=== PATIENT | male | born 1980 | race Two or more races ===

== ENCOUNTER 2021-09-14 11:22 | Inpatient (IN) | payer MEDICAID ==
[~2021-09-14] VITALS: Ht 177.8 cm; Wt 106.3 kg
[2021-09-14 13:09] LABS: BASOPHILS % 1.9 % (0.0-2.0); EOSINOPHILS % 6.3 % (0.0-5.0); HEMATOCRIT. 31.3 % (42.0-52.0); HEMOGLOBIN. 10.2 g/dL (14.0-18.0); LYMPHOCYTES % 16.2 % (20.0-50.0); MEAN CORPUSCULAR HEMOGLOBIN 29.7 pg (28.0-32.0); MEAN CORPUSCULAR VOLUME 90.8 fL (80.0-94.0); MEAN PLATELET VOLUME 8.4 fl (7.4-10.4); MONOCYTES % 6.8 % (2.0-8.0); NEUTROPHILS % 68.8 % (40.0-76.0); PLATELET 230 x1000/uL (130-400); RED BLOOD CELL COUNT 3.44 mill/uL (4.7-6.1); RED CELL DISTRIBUTION WIDTH 15.5 % (11.6-14.6)
[2021-09-14] MEDS ORDERED: AZITHROMYCIN 500MG/250ML 250 ML IV ONE (13:15)
[2021-09-14] MEDS ORDERED: CEFTRIAXONE 1 G PREMIX 50 ML IV ONE (13:15)
[2021-09-14 13:16] LABS: CHLORIDE 101 mEq/L (98-107)
[2021-09-14] MEDS ORDERED: ASPIRIN 81MG TABLET PO ONE (14:30)
[2021-09-14] MEDS: HYDRALAZINE 20MG/ML VIAL IV PRN (18:37)
[2021-09-15] MEDS: HYDRALAZINE 20MG/ML VIAL IV PRN (03:47)
[2021-09-15] MEDS: NIFEDIPINE XL 60MG TAB PO SCH ×3 (08:35→09:11)
[2021-09-15] MEDS ORDERED: CEFTRIAXONE 1 G PREMIX 50 ML IV SCH (11:30)
[2021-09-15] MEDS ORDERED: CLONIDINE 0.1MG TABLET PO PRN (11:30)
[2021-09-15] MEDS ORDERED: IPRATROPIUM/ALBUTEROL 0.5-3(2.5)MG/3ML NEB NEB PRN (11:30)
[2021-09-15] MEDS ORDERED: ACETAMINOPHEN 325MG TABLET PO PRN (11:30)
[2021-09-15] MEDS ORDERED: ONDANSETRON HCL 4MG/2ML INJ IV PRN (11:30)
[2021-09-15 11:39] VITALS: BP 121/73
[2021-09-15 12:00] VITALS: BP 121/75
[2021-09-15] MEDS: CEFTRIAXONE 1,000 MG in DEXTROSE 5% WATER 50 ML IV SCH (13:29)
[2021-09-15] MEDS: ENOXAPARIN 40MG/0.4ML SYR SUBCUT SCH (13:29)
[2021-09-15 16:00] VITALS: BP 118/60
[2021-09-15] MEDS: AZITHROMYCIN 500 MG in DEXT 5% WATER 250 ML IV SCH (16:29)
[2021-09-15] MEDS ORDERED: PNEUMOCOCCAL 23-VAL P-SAC VAC 0.5 ML IM ONE (17:00)
[2021-09-15 20:00] VITALS: BP 140/87
[2021-09-15 20:00] LABS: CREATINE KINASE 41 IU/L (39-308)
[2021-09-15 20:01] LABS: CREATINE KINASE MB FRACTION 1.5 ng/mL (0.5-3.6)
[2021-09-15 23:28] LABS: CREATINE KINASE 30 IU/L (39-308)
[2021-09-15 23:29] LABS: CREATINE KINASE MB FRACTION 1.3 ng/mL (0.5-3.6)
[2021-09-16] VITALS: BP 149/92
[2021-09-16 04:00] VITALS: BP 140/86
[2021-09-16 06:55] LABS: BASOPHILS % 1.9 % (0.0-2.0); EOSINOPHILS % 8.1 % (0.0-5.0); HEMATOCRIT. 30.3 % (42.0-52.0); LYMPHOCYTES % 18.7 % (20.0-50.0); MEAN CORPUSCULAR HEMOGLOBIN 30.4 pg (28.0-32.0); MEAN CORPUSCULAR VOLUME 92.6 fL (80.0-94.0); MEAN PLATELET VOLUME 8.8 fl (7.4-10.4); NEUTROPHILS % 62.3 % (40.0-76.0); PLATELET 225 x1000/uL (130-400); RED BLOOD CELL COUNT 3.28 mill/uL (4.7-6.1); RED CELL DISTRIBUTION WIDTH 15.4 % (11.6-14.6)
[2021-09-16 08:00] VITALS: BP 138/83
[2021-09-16] MEDS: ENOXAPARIN 40MG/0.4ML SYR SUBCUT SCH (11:16)
[2021-09-16 12:00] VITALS: BP 135/85
[2021-09-16] MEDS: CEFTRIAXONE 1,000 MG in DEXTROSE 5% WATER 50 ML IV SCH (12:10)
[2021-09-16] MEDS: AZITHROMYCIN 500 MG in DEXT 5% WATER 250 ML IV SCH (13:13)
[2021-09-16 16:00] VITALS: BP 151/94
[2021-09-17] VITALS: BP 123/59
[2021-09-17 04:00] VITALS: BP 179/75
[2021-09-17 07:58] VITALS: BP 146/83
[2021-09-17] MEDS: NIFEDIPINE XL 60MG TAB PO SCH (08:28)
[2021-09-17] MEDS: ENOXAPARIN 40MG/0.4ML SYR SUBCUT SCH (11:30)
[2021-09-17 12:18] VITALS: BP 147/93
[2021-09-17 12:19] VITALS: BP 147/93
== END 2021-09-17 13:10 | disposition home or self-care (01) | DRG 720 ==
LOC: ER 11:45 → EDBEDREQ 14:40 → MICUSO 15:13 → EDBEDREQ 15:16 → 7EST 09-15 10:51
PROVIDERS: ADMIT Internal Medicine; ATTEND Internal Medicine
PROC: 5A1D70Z Performance of Urinary Filtration, Intermittent, Less than 6 Hours Per Day (ICD-10-PCS; principal; 2021-09-16)
DX: A41.9 Sepsis, unspecified organism (principal); I13.2 Hypertensive heart and chronic kidney disease with heart failure and with stage 5 chronic kidney disease, or end stage renal disease; J18.9 Pneumonia, unspecified organism; N18.6 End stage renal disease; E44.0 Moderate protein-calorie malnutrition; I50.9 Heart failure, unspecified; I16.0 Hypertensive urgency; Z20.822 Contact with and (suspected) exposure to COVID-19; D72.819 Decreased white blood cell count, unspecified; M19.90 Unspecified osteoarthritis, unspecified site; D64.9 Anemia, unspecified; Z86.16 Personal history of COVID-19; Z82.49 Family history of ischemic heart disease and other diseases of the circulatory system; Z99.2 Dependence on renal dialysis; Z99.3 Dependence on wheelchair; Q05.9 Spina bifida, unspecified; Z68.33 Body mass index [BMI] 33.0-33.9, adult
CPT/HCPCS: 36415; 71045; 80048; 80053; 82550; 82553; 83605; 83880; 84145; 84484; 85025; 87426; 90732; 93005; 93306; 93970; 99291; C9803; J0360; J0456; J0696; J1650; J2405; J7060; U0003; U0005

== ENCOUNTER 2022-09-03 13:17 | Inpatient (IN) | payer MEDICAID ==
[~2022-09-03] VITALS: Ht 177.8 cm; Wt 95.3 kg
[2022-09-03] MEDS ORDERED: PHENYLEPHRINE 100 MG in DEXT 5% WATER 240 ML IV STA (14:28)
[2022-09-03 15:08] LABS: HEMATOCRIT. 34.9 % (42.0-52.0); HEMOGLOBIN. 11.7 g/dL (14.0-18.0); MEAN CORPUSCULAR HEMOGLOBIN 32.6 pg (28.0-32.0); MEAN CORPUSCULAR VOLUME 96.8 fL (80.0-94.0); MEAN PLATELET VOLUME 7.9 fl (7.4-10.4); PLATELET 218 x1000/uL (130-400); RED BLOOD CELL COUNT 3.61 mill/uL (4.7-6.1)
[2022-09-03 15:15] LABS: CHLORIDE 94 mEq/L (98-107)
[2022-09-03] MEDS ORDERED: CEFEPIME HCL 1000MG/VIAL INJ IV ONE (15:30)
[2022-09-03] MEDS ORDERED: VANCOMYCIN 1G PREMIX 200 ML IV SCH (15:30)
[2022-09-03] MEDS ORDERED: CEFEPIME 2,000 MG in DEXT 5% WATER 100 ML IV NR (16:00)
[2022-09-03] MEDS ORDERED: VANCOMYCIN 1,000 MG in DEXT 5% WATER 250 ML IV NR (16:00)
[2022-09-03] MEDS ORDERED: PHENYLEPHRINE 100 MG in DEXT 5% WATER 240 ML IV NR (16:15)
[2022-09-03 16:23] LABS: PLATELET ESTIMATE NORMAL
[2022-09-03] MEDS: PHENYLEPHRINE 100 MG in DEXT 5% WATER 240 ML IV PRN ×2 (16:36→19:00)
[2022-09-03] MEDS ORDERED: DOCUSATE SODIUM 100MG CAPSULE PO PRN (20:15)
[2022-09-03] MEDS ORDERED: HYDROCODONE/ACETAMINOPHEN 5/325MG TABLET PO PRN (20:15)
[2022-09-03] MEDS ORDERED: CLONIDINE 0.1MG TABLET PO PRN (20:15)
[2022-09-03] MEDS ORDERED: NALOXONE HCL 0.4MG/ML VIAL IV PRN (20:15)
[2022-09-03] MEDS ORDERED: IPRATROPIUM/ALBUTEROL 0.5-3(2.5)MG/3ML NEB HHN PRN (20:15)
[2022-09-03] MEDS ORDERED: ACETAMINOPHEN 325MG TABLET PO PRN ×2 (20:15)
[2022-09-03] MEDS ORDERED: ONDANSETRON HCL 4MG/2ML INJ IV PRN (20:15)
[2022-09-03] MEDS ORDERED: MAGNESIUM/ALUMINUM HYDROXIDE/SIMETHICONE 30ML UDC PO PRN (20:15)
[2022-09-03] MEDS ORDERED: GUAIFENESIN 200MG/10ML SUGAR FREE UDC PO PRN (20:15)
[2022-09-03] MEDS ORDERED: PIPERACILLIN/TAZOBACTAM 3.375GM/50ML PREMIX IV SCH (22:00)
[2022-09-03] MEDS ORDERED: VANCOMYCIN 750MG PREMIX 150 ML IV NR (22:00)
[2022-09-04] VITALS (50 sets, daily range): BP systolic 68–125; BP diastolic 34–66
[2022-09-04 00:05] LABS: HEMATOCRIT. 35.5 % (42.0-52.0); HEMOGLOBIN. 11.6 g/dL (14.0-18.0); MEAN CORPUSCULAR HEMOGLOBIN 31.8 pg (28.0-32.0); MEAN CORPUSCULAR VOLUME 97.2 fL (80.0-94.0); MEAN PLATELET VOLUME 7.6 fl (7.4-10.4); PLATELET 301 x1000/uL (130-400); RED BLOOD CELL COUNT 3.65 mill/uL (4.7-6.1); RED CELL DISTRIBUTION WIDTH 14.7 % (11.6-14.6)
[2022-09-04 00:46] LABS: PLATELET ESTIMATE NORMAL
[2022-09-04 05:32] LABS: HEMATOCRIT. 34.5 % (42.0-52.0); HEMOGLOBIN. 11.6 g/dL (14.0-18.0); MEAN CORPUSCULAR HEMOGLOBIN 32.7 pg (28.0-32.0); MEAN CORPUSCULAR VOLUME 97.8 fL (80.0-94.0); MEAN PLATELET VOLUME 7.3 fl (7.4-10.4); PLATELET 258 x1000/uL (130-400); RED BLOOD CELL COUNT 3.53 mill/uL (4.7-6.1); RED CELL DISTRIBUTION WIDTH 14.7 % (11.6-14.6)
[2022-09-04 05:40] LABS: CHLORIDE 95 mEq/L (98-107)
[2022-09-04 05:53] LABS: INR 1.1
[2022-09-04 05:58] LABS: HDL CHOLESTEROL 34 mg/dL (40-59); LDL CHOLESTEROL 39 mg/dL (5-100); PHOSPHORUS 7.4 mg/dL (2.5-4.9); T4 FREE 0.97 ng/dL (0.76-1.46); TOTAL IRON BINDING CAPACITY 186 ug/dL (250-450)
[2022-09-04 06:11] LABS: VITAMIN B12 SERUM 317 pg/mL (211-911)
[2022-09-04] MEDS ORDERED: ENOXAPARIN 30MG/0.3ML SYR SUBCUT SCH (09:00)
[2022-09-04] MEDS: PANTOPRAZOLE SODIUM 40 MG/VIAL IV SCH (09:03)
[2022-09-04] MEDS: PIPERACILLIN/TAZOBACTAM 3.375 G in DEXTROSE 5% WATER 50 ML IV SCH ×2 (09:03→23:39)
[2022-09-04] MEDS ORDERED: VANCOMYCIN 750MG PREMIX 150 ML IV NR (11:00)
[2022-09-04 12:38] LABS: PLATELET ESTIMATE NORMAL
[2022-09-04] MEDS ORDERED: CALC667T6 MT (15:16)
[2022-09-04] MEDS ORDERED: SACU1TAB7 MT (15:16)
[2022-09-04] MEDS: MIDODRINE HCL 5MG TABLET PO SCH (16:42)
[2022-09-05] VITALS (106 sets, daily range): BP systolic 53–135; BP diastolic 21–88
[2022-09-05 06:14] LABS: BASOPHILS % 1.1 % (0.0-2.0); EOSINOPHILS % 1.9 % (0.0-5.0); HEMOGLOBIN. 11.9 g/dL (14.0-18.0); LYMPHOCYTES % 8.6 % (20.0-50.0); MEAN CORPUSCULAR HEMOGLOBIN 32.8 pg (28.0-32.0); MEAN CORPUSCULAR VOLUME 96.4 fL (80.0-94.0); MEAN PLATELET VOLUME 7.7 fl (7.4-10.4); MONOCYTES % 7.8 % (2.0-8.0); NEUTROPHILS % 80.6 % (40.0-76.0); PLATELET 275 x1000/uL (130-400); RED BLOOD CELL COUNT 3.62 mill/uL (4.7-6.1); RED CELL DISTRIBUTION WIDTH 14.3 % (11.6-14.6)
[2022-09-05] MEDS: NOREPINEPHRINE 8 MG in DEXT 5% WATER 242 ML IV PRN (06:34)
[2022-09-05] MEDS ORDERED: LIDOCAINE HCL/PF 1% 10 MG/ML 5ML VIAL ONE (08:06)
[2022-09-05] MEDS ORDERED: SODIUM POLYSTYRENE SULFONATE 15 G/60 ML BOT PO SCH (08:15)
[2022-09-05] MEDS: PANTOPRAZOLE SODIUM 40 MG/VIAL IV SCH (08:51)
[2022-09-05] MEDS: MIDODRINE HCL 5MG TABLET PO SCH ×3 (08:51→16:34)
[2022-09-05] MEDS: ENOXAPARIN 40MG/0.4ML SYR SUBCUT SCH ×2 (08:51→12:52)
[2022-09-05] MEDS: PIPERACILLIN/TAZOBACTAM 3.375 G in DEXTROSE 5% WATER 50 ML IV SCH ×2 (08:52→20:32)
[2022-09-06] VITALS (88 sets, daily range): BP systolic 65–150; BP diastolic 32–84
[2022-09-06] MEDS: NOREPINEPHRINE 8 MG in DEXT 5% WATER 242 ML IV PRN (05:12)
[2022-09-06] MEDS: MIDODRINE HCL 5MG TABLET PO SCH ×3 (08:39→17:46)
[2022-09-06] MEDS: ENOXAPARIN 30MG/0.3ML SYR SUBCUT SCH ×2 (08:39→09:00)
[2022-09-06] MEDS: PIPERACILLIN/TAZOBACTAM 3.375 G in DEXTROSE 5% WATER 50 ML IV SCH ×2 (08:39→21:35)
[2022-09-06] MEDS: PANTOPRAZOLE SODIUM 40 MG/VIAL IV SCH (08:40)
[2022-09-07] VITALS (98 sets, daily range): BP systolic 53–163; BP diastolic 15–114
[2022-09-07 05:57] LABS: BASOPHILS % 1.1 % (0.0-2.0); EOSINOPHILS % 4.4 % (0.0-5.0); HEMATOCRIT. 32.9 % (42.0-52.0); HEMOGLOBIN. 11.2 g/dL (14.0-18.0); LYMPHOCYTES % 17.5 % (20.0-50.0); MEAN CORPUSCULAR HEMOGLOBIN 32.8 pg (28.0-32.0); MEAN CORPUSCULAR VOLUME 96.4 fL (80.0-94.0); MEAN PLATELET VOLUME 7.5 fl (7.4-10.4); MONOCYTES % 8.9 % (2.0-8.0); NEUTROPHILS % 68.1 % (40.0-76.0); PLATELET 285 x1000/uL (130-400); RED BLOOD CELL COUNT 3.42 mill/uL (4.7-6.1); RED CELL DISTRIBUTION WIDTH 14.2 % (11.6-14.6)
[2022-09-07] MEDS: PANTOPRAZOLE SODIUM 40 MG/VIAL IV SCH (09:00)
[2022-09-07] MEDS: ENOXAPARIN 30MG/0.3ML SYR SUBCUT SCH (09:00)
[2022-09-07] MEDS: PIPERACILLIN/TAZOBACTAM 3.375 G in DEXTROSE 5% WATER 50 ML IV SCH ×2 (09:00→21:10)
[2022-09-07] MEDS: MIDODRINE HCL 5MG TABLET PO SCH ×3 (09:01→17:43)
[2022-09-07] MEDS ORDERED: LIDOCAINE HCL 1% 10 MG/ML 10ML VIAL ONE ×2 (13:33→14:19)
[2022-09-07] MEDS ORDERED: HEPARIN 1000 UNITS/ML 10ML ONE (13:33)
[2022-09-07] MEDS ORDERED: MIDAZOLAM HCL 2 MG/2 ML VIAL ONE (13:39)
[2022-09-07] MEDS ORDERED: FENTANYL CITRATE/PF 50MCG/ML 2ML VIAL ONE (13:39)
[2022-09-07] MEDS ORDERED: IOHEXOL-300 50 ML BOTTLE IV ONE (13:41)
[2022-09-07] MEDS ORDERED: MIDAZOLAM HCL 2 MG/2 ML VIAL IV ONE (14:15)
[2022-09-07] MEDS ORDERED: FENTANYL CITRATE/PF 50MCG/ML 2ML VIAL IV ONE (14:15)
[2022-09-07] MEDS ORDERED: VANCOMYCIN 750MG PREMIX 150 ML IV NR (21:00)
[2022-09-08] VITALS (56 sets, daily range): BP systolic 30–139; BP diastolic 20–74
[2022-09-08 06:39] LABS: BASOPHILS % 1.2 % (0.0-2.0); EOSINOPHILS % 4.1 % (0.0-5.0); HEMATOCRIT. 31.2 % (42.0-52.0); HEMOGLOBIN. 10.4 g/dL (14.0-18.0); LYMPHOCYTES % 14.6 % (20.0-50.0); MEAN CORPUSCULAR HEMOGLOBIN 32.6 pg (28.0-32.0); MEAN CORPUSCULAR VOLUME 97.5 fL (80.0-94.0); MEAN PLATELET VOLUME 7.6 fl (7.4-10.4); NEUTROPHILS % 70.1 % (40.0-76.0); PLATELET 235 x1000/uL (130-400); RED CELL DISTRIBUTION WIDTH 14.3 % (11.6-14.6)
[2022-09-08] MEDS: PANTOPRAZOLE SODIUM 40 MG/VIAL IV SCH (08:00)
[2022-09-08] MEDS: PIPERACILLIN/TAZOBACTAM 3.375 G in DEXTROSE 5% WATER 50 ML IV SCH (08:00)
[2022-09-08] MEDS: MIDODRINE HCL 5MG TABLET PO SCH ×2 (08:35→14:09)
[2022-09-08] MEDS: ENOXAPARIN 30MG/0.3ML SYR SUBCUT SCH (08:37)
[2022-09-08 09:12] LABS: PHOSPHORUS 8.7 mg/dL (2.5-4.9)
[2022-09-08] MEDS ORDERED: SEVELAMER CARBONATE 800 MG TABLET PO SCH (10:45)
[2022-09-08 16:15] LABS: HEPATITIS B SURFACE ANTIGEN NEGATIVE
== END 2022-09-08 16:20 | disposition home or self-care (01) | DRG 720 ==
LOC: ER 13:17 → MICUSO 18:48 → EDBEDREQ 18:50 → EDBEDREQTM 18:50 → EDBEDREQSVC 18:50 → CVICU 09-04 14:06
PROVIDERS: ADMIT Internal Medicine; ATTEND Internal Medicine
PROC: 05HM33Z Insertion of Infusion Device into Right Internal Jugular Vein, Percutaneous Approach (ICD-10-PCS; 2022-09-03)
PROC: B543ZZA Ultrasonography of Right Jugular Veins, Guidance (ICD-10-PCS; 2022-09-03)
PROC: 5A1D70Z Performance of Urinary Filtration, Intermittent, Less than 6 Hours Per Day (ICD-10-PCS; 2022-09-04)
PROC: 0JH63XZ Insertion of Tunneled Vascular Access Device into Chest Subcutaneous Tissue and Fascia, Percutaneous Approach (ICD-10-PCS; principal; 2022-09-07)
PROC: 02H633Z Insertion of Infusion Device into Right Atrium, Percutaneous Approach (ICD-10-PCS; 2022-09-07)
PROC: B5181ZA Fluoroscopy of Superior Vena Cava using Low Osmolar Contrast, Guidance (ICD-10-PCS; 2022-09-07)
PROC: B548ZZA Ultrasonography of Superior Vena Cava, Guidance (ICD-10-PCS; 2022-09-07)
PROC: 02HV33Z Insertion of Infusion Device into Superior Vena Cava, Percutaneous Approach (ICD-10-PCS; 2022-09-07)
PROC: B548ZZA Ultrasonography of Superior Vena Cava, Guidance (ICD-10-PCS; 2022-09-07)
PROC: 5A1D70Z Performance of Urinary Filtration, Intermittent, Less than 6 Hours Per Day (ICD-10-PCS; 2022-09-08)
DX: A41.9 Sepsis, unspecified organism (principal); K63.2 Fistula of intestine; I13.2 Hypertensive heart and chronic kidney disease with heart failure and with stage 5 chronic kidney disease, or end stage renal disease; E87.20 Acidosis, unspecified; D63.8 Anemia in other chronic diseases classified elsewhere; E83.39 Other disorders of phosphorus metabolism; E83.51 Hypocalcemia; E87.1 Hypo-osmolality and hyponatremia; N18.6 End stage renal disease; I42.9 Cardiomyopathy, unspecified; E87.8 Other disorders of electrolyte and fluid balance, not elsewhere classified; D53.9 Nutritional anemia, unspecified; I50.22 Chronic systolic (congestive) heart failure; E80.6 Other disorders of bilirubin metabolism; K80.20 Calculus of gallbladder without cholecystitis without obstruction; Q05.9 Spina bifida, unspecified; Z79.899 Other long term (current) drug therapy; Z93.3 Colostomy status; Z90.5 Acquired absence of kidney; Z99.2 Dependence on renal dialysis; Z86.79 Personal history of other diseases of the circulatory system
CPT/HCPCS: 36415; 36558; 36573; 36589; 71045; 74176; 76937; 77001; 80048; 80053; 80061; 80202; 82550; 82607; 82728; 82746; 83540; 83550; 83605; 83735; 83880; 84100; 84145; 84439; 84443; 84484; 85025; 86705; 86709; 86803; 87070; 87340; 90935; 93306; 99152; 99153; 99291; C1725; C1769; C9113; J0692; J1644; J1650; J2250; J2370; J2543; J3010; J3370; J3490; J7060; Q9967; G0500

== ENCOUNTER 2023-01-30 15:27 | Emergency (ER) | payer MEDICAID ==
[~2023-01-30] VITALS: Ht 177.8 cm; Wt 107.0 kg
[~2023-01-30 15:27] MED LIST: CALC667T6 MT; SACU1TAB7 MT
[2023-01-30 16:05] LABS: BASOPHILS % 0.9 % (0.0-2.0); HEMATOCRIT. 27.5 % (42.0-52.0); HEMOGLOBIN. 8.9 g/dL (14.0-18.0); LYMPHOCYTES % 11.7 % (20.0-50.0); MEAN CORPUSCULAR VOLUME 98.7 fL (80.0-94.0); MONOCYTES % 4.4 % (2.0-8.0); PLATELET 231 x1000/uL (130-400); RED BLOOD CELL COUNT 2.78 mill/uL (4.7-6.1); RED CELL DISTRIBUTION WIDTH 15.5 % (11.6-14.6)
[2023-01-30 16:11] LABS: PROTHROMBIN TIME 11.1 sec (9.6-11.0)
[2023-01-30 16:15] LABS: CHLORIDE 99 mEq/L (98-107)
[2023-01-30 18:15] VITALS: BP 108/62
== END 2023-01-30 19:20 | disposition left against medical advice (07) ==
LOC: ER 15:27
DX: T82.514A Breakdown (mechanical) of infusion catheter, initial encounter (principal); X58.XXXA Exposure to other specified factors, initial encounter; E87.5 Hyperkalemia; N18.6 End stage renal disease; I10 Essential (primary) hypertension; Z20.822 Contact with and (suspected) exposure to COVID-19
CPT/HCPCS: 36415; 71045; 80053; 84484; 85025; 85610; 87426; 93005; 99285; C9803; Z7610

== ENCOUNTER 2025-04-21 09:58 | Inpatient (IN) | payer MEDICAID, OTHER ==
[~2025-04-21] VITALS: Ht 177.8 cm; Wt 122.0 kg
[2025-04-21] VITALS (40 sets, daily range): BP systolic 84–108; BP diastolic 47–86; PULSE 62–94; RESP 11–25; TEMP 36.50292–37.1; O2SAT 88–100
[2025-04-21 10:34] LABS: BASOPHILS % 0.8 % (0.0-2.0); EOSINOPHILS % 2.2 % (0.0-5.0); HEMATOCRIT. 27.6 % (42.0-52.0); HEMOGLOBIN. 9.1 g/dL (14.0-18.0); LYMPHOCYTES % 12.6 % (20.0-50.0); MEAN PLATELET VOLUME 8.5 fl (7.4-10.4); MONOCYTES % 5.0 % (2.0-8.0); NEUTROPHILS % 79.4 % (40.0-76.0); PLATELET 201 x1000/uL (130-400); RED BLOOD CELL COUNT 2.81 mill/uL (4.7-6.1); RED CELL DISTRIBUTION WIDTH 14.1 % (11.6-14.6)
[2025-04-21] MEDS: SODIUM CHLORIDE 0.9% 500 ML IV ONE ×2 (10:49→12:15)
[2025-04-21 10:55] LABS: UREA NITROGEN BLOOD 27 mg/dL (9-23)
[2025-04-21 10:57] LABS: ASPARTATE AMINOTRANSFERASE 10 IU/L (<34); BILIRUBIN DIRECT 0.2 mg/dL (<=3.0); BILIRUBIN TOTAL 0.6 mg/dL (0.1-1.0); TROPONIN I HIGH SENSITIVITY < 4 ng/L (3.0-53)
[2025-04-21 10:58] LABS: PROTEIN TOTAL 7.1 g/dL (6.0-8.3)
[2025-04-21 11:08] LABS: CREATININE 7.1 mg/dL (0.6-1.3)
[2025-04-21] MEDS: NOREPINEPHRINE 8MG/250ML PMX 250 ML IV PRN (11:39)
[2025-04-21] MEDS ORDERED: MIDODRINE HCL 5MG TABLET PO SCH ×2 (13:00→14:00)
[2025-04-21] MEDS ORDERED: HYDROCODONE/ACETAMINOPHEN 5/325MG TABLET PO PRN (13:15)
[2025-04-21] MEDS ORDERED: MAGNESIUM/ALUMINUM HYDROXIDE/SIMETHICONE 30ML UDC PO PRN (13:15)
[2025-04-21] MEDS ORDERED: ZOLPIDEM TARTRATE 5MG TABLET PO PRN (13:15)
[2025-04-21] MEDS ORDERED: NALOXONE HCL 0.4MG/ML VIAL IV PRN (13:30)
[2025-04-21] MEDS: MIDODRINE HCL 5MG TABLET PO SCH (13:48)
[2025-04-21] MEDS: ENOXAPARIN 30MG/0.3ML SYR SUBCUT SCH (13:48)
[2025-04-21 15:39] LABS: HEPATITIS C AB NON REACTIVE (Neg) (Negative)
[2025-04-22] VITALS (85 sets, daily range): BP systolic 59–147; BP diastolic 37–86; PULSE 60–130; RESP 0–28; TEMP 36.7–38.1; O2SAT 85–100
[2025-04-22] MEDS: ACETAMINOPHEN 325MG TABLET PO PRN (02:12)
[2025-04-22 07:15] LABS: UREA NITROGEN BLOOD 18.0 mg/dL (9-23)
[2025-04-22 07:17] LABS: BASOPHILS % 0.5 % (0.0-2.0); EOSINOPHILS % 2.6 % (0.0-5.0); HEMATOCRIT. 31.0 % (42.0-52.0); HEMOGLOBIN. 10.3 g/dL (14.0-18.0); LYMPHOCYTES % 9.3 % (20.0-50.0); MEAN PLATELET VOLUME 8.7 fl (7.4-10.4); MONOCYTES % 6.2 % (2.0-8.0); NEUTROPHILS % 81.4 % (40.0-76.0); PLATELET 266 x1000/uL (130-400); RED BLOOD CELL COUNT 3.19 mill/uL (4.7-6.1); RED CELL DISTRIBUTION WIDTH 13.8 % (11.6-14.6)
[2025-04-22 07:28] LABS: CREATININE 5.4 mg/dL (0.6-1.3)
[2025-04-22] MEDS: PANTOPRAZOLE SODIUM 40 MG/VIAL IV SCH (09:32)
[2025-04-22] MEDS: VANCOMYCIN 2GM PMX (XELLIA) 400 ML IV SCH (13:14)
[2025-04-22] MEDS: ONDANSETRON HCL 4MG/2ML INJ IV PRN (17:24)
[2025-04-22] MEDS: MORPHINE SULFATE 2 MG/ML INJ (NOT FOR IM USE) IV PRN (19:03)
[2025-04-23] VITALS (110 sets, daily range): BP systolic 50–136; BP diastolic 28–86; PULSE 61–139; RESP 0–22; TEMP 36.55848–37.3; O2SAT 90–100
[2025-04-23 05:44] LABS: BASOPHILS % 0.6 % (0.0-2.0); EOSINOPHILS % 3.5 % (0.0-5.0); HEMATOCRIT. 30.2 % (42.0-52.0); HEMOGLOBIN. 10.0 g/dL (14.0-18.0); LYMPHOCYTES % 11.2 % (20.0-50.0); MEAN PLATELET VOLUME 8.4 fl (7.4-10.4); MONOCYTES % 7.5 % (2.0-8.0); NEUTROPHILS % 77.2 % (40.0-76.0); PLATELET 266 x1000/uL (130-400); RED BLOOD CELL COUNT 3.08 mill/uL (4.7-6.1); RED CELL DISTRIBUTION WIDTH 14.1 % (11.6-14.6)
[2025-04-23 05:59] LABS: UREA NITROGEN BLOOD 23.0 mg/dL (9-23)
[2025-04-23 06:17] LABS: CREATININE 6.8 mg/dL (0.6-1.3)
[2025-04-23] MEDS ORDERED: IPRATROPIUM/ALBUTEROL 0.5-3(2.5)MG/3ML NEB HHN PRN (14:30)
[2025-04-23] MEDS: MIDODRINE HCL 5MG TABLET PO SCH (18:26)
[2025-04-23] MEDS ORDERED: PHENYLEPHRINE 50 MG in DEXT 5% WATER 245 ML IV PRN (19:30)
[2025-04-23] MEDS: PHENYLEPHRINE 50MG/250ML PMX IV PRN (20:05)
[2025-04-24] VITALS (134 sets, daily range): BP systolic 72–129; BP diastolic 32–99; PULSE 76–126; RESP 5–28; TEMP 36.114–36.9; O2SAT 87–100
[2025-04-24 04:58] LABS: BASOPHILS % 0.6 % (0.0-2.0); EOSINOPHILS % 1.0 % (0.0-5.0); HEMATOCRIT. 29.9 % (42.0-52.0); HEMOGLOBIN. 9.8 g/dL (14.0-18.0); LYMPHOCYTES % 8.8 % (20.0-50.0); MEAN PLATELET VOLUME 8.1 fl (7.4-10.4); MONOCYTES % 8.6 % (2.0-8.0); NEUTROPHILS % 81.0 % (40.0-76.0); PLATELET 294 x1000/uL (130-400); RED BLOOD CELL COUNT 3.04 mill/uL (4.7-6.1); RED CELL DISTRIBUTION WIDTH 14.5 % (11.6-14.6)
[2025-04-24 05:05] LABS: UREA NITROGEN BLOOD 24.0 mg/dL (9-23)
[2025-04-24 05:23] LABS: CREATININE 6.5 mg/dL (0.6-1.3)
[2025-04-24] MEDS: PHENYLEPHRINE 100 MG in DEXT 5% WATER 240 ML IV PRN (09:19)
[2025-04-24 10:17] LABS: INR 1.1
[2025-04-24] MEDS ORDERED: VANCOMYCIN 1G PREMIX 200 ML IV SCH (14:00)
[2025-04-24] MEDS ORDERED: CEFEPIME 2GM IN DEXT 5% 100ML IV SCH (15:45)
[2025-04-24] MEDS: CEFEPIME 1GM PREMIX 50ML IV SCH (16:52)
[2025-04-24] MEDS: ENOXAPARIN 40MG/0.4ML SYR SUBCUT SCH (18:15)
[2025-04-25] VITALS (101 sets, daily range): BP systolic 67–127; BP diastolic 43–111; PULSE 68–136; RESP 14–32; TEMP 36.6696–36.9; O2SAT 87–99
[2025-04-25] MEDS: LIDOCAINE HCL 1% 10 MG/ML 10ML VIAL ONE (09:18)
[2025-04-25] MEDS: IPRATROPIUM/ALBUTEROL 0.5-3(2.5)MG/3ML NEB HHN NR (10:57)
[2025-04-25] MEDS: ALTEPLASE 2MG/VIAL ITC SCH (11:00)
[2025-04-25 13:09] LABS: BG BASE EXCESS -7.2 mmol/L (-2.0-3.0); BG CARBOXYHEMOGLOBIN 0.6 % (0.5-1.5); BG DEOXYHEMOGLOBIN 8.4 % (0.0-5.0); BG FLOW(L/min) 4.00 L/min; BG FRACTION INSPIRED OXYGEN 36; BG HCO3 ACT 17.1 mmol/L (21.0-28.0); BG METHEMOGLOBIN 0.1 % (0.5-1.5); BG OXYGEN SATURATION 91.5 % (94.0-98.0); BG OXYHEMOGLOBIN 90.9 % (94.0-98.0); BG PCO2 30.5 mmHg (35.0-48.0); BG PH 7.367 (7.350-7.450); BG PO2 65.9 mmHg (83.0-108.0); BG SAMPLE SITE RIGHT BRACHIAL; BG TOTAL HEMOGLOBIN 10.0 g/dL (13.5-17.5); BG VENT MODE NASAL CANNULA
[2025-04-25 15:18] LABS: BASOPHILS % 0.6 % (0.0-2.0); EOSINOPHILS % 2.7 % (0.0-5.0); HEMATOCRIT. 32.1 % (42.0-52.0); HEMOGLOBIN. 10.7 g/dL (14.0-18.0); LYMPHOCYTES % 7.9 % (20.0-50.0); MEAN PLATELET VOLUME 8.3 fl (7.4-10.4); MONOCYTES % 6.5 % (2.0-8.0); NEUTROPHILS % 82.3 % (40.0-76.0); PLATELET 285 x1000/uL (130-400); RED BLOOD CELL COUNT 3.31 mill/uL (4.7-6.1); RED CELL DISTRIBUTION WIDTH 13.9 % (11.6-14.6)
[2025-04-25 15:38] LABS: UREA NITROGEN BLOOD 21.0 mg/dL (9-23)
[2025-04-25 15:39] LABS: CREATININE 5.8 mg/dL (0.6-1.3)
[2025-04-25] MEDS: IPRATROPIUM/ALBUTEROL 0.5-3(2.5)MG/3ML NEB HHN SCH (17:22)
[2025-04-25] MEDS: ACETYLCYSTEINE 200MG/ML 20% VIAL 4ML INH SCH (17:22)
[2025-04-25] MEDS: VANCOMYCIN 750MG PREMIX 150 ML IV SCH (20:35)
[2025-04-25] MEDS ORDERED: VANCOMYCIN 750MG PMX (XELLIA) 150 ML IV SCH (21:00)
[2025-04-26] VITALS (119 sets, daily range): BP systolic 59–120; BP diastolic 37–85; PULSE 68–136; RESP 12–27; TEMP 36.6–36.7; O2SAT 59–100
[2025-04-26 04:39] LABS: BASOPHILS % 0.7 % (0.0-2.0); EOSINOPHILS % 5.5 % (0.0-5.0); HEMATOCRIT. 26.5 % (42.0-52.0); HEMOGLOBIN. 8.7 g/dL (14.0-18.0); LYMPHOCYTES % 10.0 % (20.0-50.0); MEAN PLATELET VOLUME 8.2 fl (7.4-10.4); MONOCYTES % 8.9 % (2.0-8.0); NEUTROPHILS % 74.9 % (40.0-76.0); PLATELET 197 x1000/uL (130-400); RED BLOOD CELL COUNT 2.75 mill/uL (4.7-6.1); RED CELL DISTRIBUTION WIDTH 14.1 % (11.6-14.6)
[2025-04-26 05:09] LABS: UREA NITROGEN BLOOD 27.0 mg/dL (9-23)
[2025-04-26 05:10] LABS: CREATININE 7.2 mg/dL (0.6-1.3)
[2025-04-26] MEDS ORDERED: NALOXONE HCL 0.4MG/ML VIAL IV PRN (20:45)
[2025-04-26] MEDS: EPOETIN ALFA-EPBX 4,000 UNITS/ML VIAL SUBCUT SCH (20:49)
[2025-04-27] VITALS (92 sets, daily range): BP systolic 58–120; BP diastolic 44–89; PULSE 70–102; RESP 10–33; TEMP 36.6–37; O2SAT 94–100
[2025-04-27 04:57] LABS: UREA NITROGEN BLOOD 19.0 mg/dL (9-23)
[2025-04-27 05:01] LABS: BASOPHILS % 0.8 % (0.0-2.0); EOSINOPHILS % 8.6 % (0.0-5.0); HEMATOCRIT. 28.9 % (42.0-52.0); HEMOGLOBIN. 9.5 g/dL (14.0-18.0); LYMPHOCYTES % 10.5 % (20.0-50.0); MEAN PLATELET VOLUME 8.2 fl (7.4-10.4); MONOCYTES % 9.8 % (2.0-8.0); NEUTROPHILS % 70.3 % (40.0-76.0); PLATELET 234 x1000/uL (130-400); RED BLOOD CELL COUNT 2.96 mill/uL (4.7-6.1); RED CELL DISTRIBUTION WIDTH 14.0 % (11.6-14.6)
[2025-04-27 05:14] LABS: CREATININE 5.6 mg/dL (0.6-1.3)
[2025-04-27] MEDS ORDERED: THROMBIN (BOVINE) 5000 UNITS/VIAL TOP ONE (09:17)
[2025-04-27] MEDS ORDERED: POLYMYXIN B SULFATE 500000 UNITS/VIAL ONE (09:17)
[2025-04-27] MEDS ORDERED: LIDOCAINE HCL 1% 10 MG/ML 10ML VIAL ONE (09:18)
[2025-04-27] MEDS ORDERED: BUPIVACAINE HCL/PF 0.5% (5MG/ML) 10ML ONE (09:18)
[2025-04-27] MEDS ORDERED: HEPARIN SODIUM 1,000 UNIT/1ML VIAL IV ONE (09:18)
[2025-04-27] MEDS ORDERED: BACITRACIN 14GM TUBE TOP ONE (09:18)
[2025-04-27] MEDS ORDERED: ETOMIDATE 2MG/ML 10ML VIAL IV ONE (09:54)
[2025-04-27] MEDS ORDERED: SUCCINYLCHOLINE CHLORIDE 200MG/10ML IV ONE (09:54)
[2025-04-27] MEDS ORDERED: ONDANSETRON HCL 4MG/2ML INJ ONE (09:54)
[2025-04-27] MEDS ORDERED: ROCURONIUM BROMIDE 10MG/ML VIAL 5ML IV ONE (09:55)
[2025-04-27] MEDS ORDERED: METOCLOPRAMIDE HCL 10MG/2ML VIAL ONE (09:55)
[2025-04-27] MEDS ORDERED: MIDAZOLAM HCL 2 MG/2 ML VIAL ONE (10:37)
[2025-04-27] MEDS ORDERED: FENTANYL CITRATE/PF 50MCG/ML 2ML VIAL ONE (10:56)
[2025-04-27] MEDS ORDERED: ALBUMIN HUMAN 12.5G/250ML (5%) IV ONE (11:37)
[2025-04-27] MEDS ORDERED: PROPOFOL 200MG/20ML VIAL IV ONE (11:37)
[2025-04-27] MEDS ORDERED: HYDROMORPHONE HCL/PF 2MG/ML INJ ONE (12:11)
[2025-04-27] MEDS: MORPHINE SULFATE 2 MG/ML INJ (NOT FOR IM USE) IV PRN (18:44)
[2025-04-28] VITALS (102 sets, daily range): BP systolic 75–138; BP diastolic 48–111; PULSE 69–108; RESP 10–33; TEMP 36.6–37.1; O2SAT 90–100
[2025-04-28 05:50] LABS: PLATELET 203 x1000/uL (130-400); RED BLOOD CELL COUNT 2.46 mill/uL (4.7-6.1); RED CELL DISTRIBUTION WIDTH 14.4 % (11.6-14.6)
[2025-04-28 05:58] LABS: UREA NITROGEN BLOOD 27.0 mg/dL (9-23)
[2025-04-28 06:45] LABS: CREATININE 6.7 mg/dL (0.6-1.3)
[2025-04-28] MEDS: MORPHINE SULFATE 4 MG/ML INJ (FOR IV/IM USE) IV PRN (19:41)
[2025-04-28] MEDS: VANCOMYCIN 750MG/150ML (BAXTER) IV SCH (20:59)
[2025-04-28] MEDS: MIDODRINE HCL 5MG TABLET PO SCH (21:13)
[2025-04-28] MEDS: FAMOTIDINE 20MG TABLET PO NR (21:42)
[2025-04-29] VITALS (103 sets, daily range): BP systolic 78–119; BP diastolic 24–87; PULSE 62–101; RESP 9–29; TEMP 36.4–36.9; O2SAT 91–100
[2025-04-29 05:36] LABS: CREATININE 4.8 mg/dL (0.6-1.3); UREA NITROGEN BLOOD 20.0 mg/dL (9-23)
[2025-04-30] VITALS (102 sets, daily range): BP systolic 58–108; BP diastolic 44–84; PULSE 59–113; RESP 9–26; TEMP 36.3–36.7; O2SAT 94–100
[2025-04-30 05:17] LABS: UREA NITROGEN BLOOD 30.0 mg/dL (9-23)
[2025-04-30 05:18] LABS: BASOPHILS % 0.3 % (0.0-2.0); EOSINOPHILS % 1.3 % (0.0-5.0); HEMATOCRIT. 24.0 % (42.0-52.0); HEMOGLOBIN. 7.8 g/dL (14.0-18.0); LYMPHOCYTES % 13.5 % (20.0-50.0); MEAN PLATELET VOLUME 8.2 fl (7.4-10.4); MONOCYTES % 8.6 % (2.0-8.0); NEUTROPHILS % 76.3 % (40.0-76.0); PLATELET 209 x1000/uL (130-400); RED BLOOD CELL COUNT 2.44 mill/uL (4.7-6.1); RED CELL DISTRIBUTION WIDTH 15.1 % (11.6-14.6)
[2025-04-30 05:22] LABS: CREATININE 5.9 mg/dL (0.6-1.3)
[2025-04-30] MEDS: ALTEPLASE 2MG/VIAL ITC NR (15:34)
[2025-04-30] MEDS: CEFAZOLIN 1000MG PREMIX 50 ML IV SCH (17:46)
[2025-04-30] MEDS ORDERED: VANCOMYCIN 750MG/150ML (BAXTER) IV SCH (21:00)
[2025-05-01] VITALS (107 sets, daily range): BP systolic 68–111; BP diastolic 35–89; PULSE 67–120; RESP 0–36; TEMP 36.22512–36.6; O2SAT 94–100
[2025-05-01] MEDS: FLUDROCORTISONE ACETATE 0.1MG TABLET PO SCH (08:54)
[2025-05-01] MEDS: MIDODRINE HCL 5MG TABLET PO SCH (08:55)
[2025-05-01 09:48] LABS: BASOPHILS % 0.6 % (0.0-2.0); EOSINOPHILS % 6.3 % (0.0-5.0); LYMPHOCYTES % 16.3 % (20.0-50.0); MEAN PLATELET VOLUME 8.3 fl (7.4-10.4); MONOCYTES % 6.1 % (2.0-8.0); NEUTROPHILS % 70.7 % (40.0-76.0); PLATELET 218 x1000/uL (130-400); RED BLOOD CELL COUNT 2.89 mill/uL (4.7-6.1); RED CELL DISTRIBUTION WIDTH 15.5 % (11.6-14.6)
[2025-05-01 09:55] LABS: HEMATOCRIT. 28.9 % (42.0-52.0); HEMOGLOBIN. 9.1 g/dL (14.0-18.0)
[2025-05-01 10:00] LABS: UREA NITROGEN BLOOD 34.0 mg/dL (9-23)
[2025-05-01 10:01] LABS: CREATININE 7.2 mg/dL (0.6-1.3)
[2025-05-02] VITALS (15 sets, daily range): BP systolic 72–96; BP diastolic 45–62; PULSE 86–113; RESP 12–24; TEMP 35.6–36.6; O2SAT 95–100
[2025-05-02] MEDS: SODIUM CHLORIDE 0.9% 250 ML IV ONE (01:52)
[2025-05-02] MEDS: MIDODRINE HCL 5MG TABLET PO SCH (17:17)
[2025-05-02] MEDS: MORPHINE SULFATE 2 MG/ML INJ (NOT FOR IM USE) IV PRN (23:43)
[2025-05-03] VITALS: BP 93/56; PULSE 104; RESP 20; TEMP 36.1; O2SAT 99
[2025-05-03 04:00] VITALS: BP 92/53; PULSE 97; RESP 19; TEMP 36; O2SAT 100
[2025-05-03 08:00] VITALS: BP 102/59; PULSE 94; RESP 14; TEMP 36.5; O2SAT 95
[2025-05-03 12:00] VITALS: BP 85/50; PULSE 94; RESP 18; TEMP 36.4; O2SAT 99
[2025-05-03 16:00] VITALS: BP 83/45; PULSE 91; RESP 13; TEMP 36.6; O2SAT 96
[2025-05-03 20:00] VITALS: BP 84/48; PULSE 89; RESP 19; TEMP 36.2; O2SAT 100
[2025-05-04] VITALS (24 sets, daily range): BP systolic 83–142; BP diastolic 48–65; PULSE 62–103; RESP 11–20; TEMP 35.9–36.6696; O2SAT 1–100
[2025-05-04 08:04] LABS: PLATELET 209 x1000/uL (130-400); RED BLOOD CELL COUNT 2.91 mill/uL (4.7-6.1); RED CELL DISTRIBUTION WIDTH 16.1 % (11.6-14.6)
[2025-05-04 08:21] LABS: UREA NITROGEN BLOOD 29.0 mg/dL (9-23)
[2025-05-04 08:26] LABS: CREATININE 7.1 mg/dL (0.6-1.3)
[2025-05-04] MEDS ORDERED: LIDOCAINE HCL 1% 10 MG/ML 10ML VIAL ONE (08:26)
[2025-05-04] MEDS ORDERED: FENTANYL CITRATE/PF 50MCG/ML 2ML VIAL ONE (08:41)
[2025-05-04] MEDS ORDERED: LIDOCAINE HCL/EPINEPHRINE 1%-EPI 1:100,000 20ML VIAL ONE (09:15)
[2025-05-04] MEDS: FENTANYL CITRATE/PF 50MCG/ML 2ML VIAL IV ONE (09:24)
[2025-05-05] VITALS (9 sets, daily range): BP systolic 88–99; BP diastolic 44–58; PULSE 84–104; RESP 17–19; TEMP 36.2–36.61404; O2SAT 97–100
[2025-05-05] MEDS ORDERED: MIDO5TAB4 PO (10:50)
== END 2025-05-05 14:10 | disposition home health service (06) | DRG 182 ==
LOC: ER 10:09 → EDBEDREQ 10:20 → EDBEDREQSVC 11:08 → EDBEDREQTM 11:08 → EDBEDREQ 11:20 → ENRESERV 12:03 → CVICU 12:33 → MICUSO 04-22 16:36 → 6WST 05-02 00:53
PROVIDERS: ADMIT Internal Medicine; ATTEND Internal Medicine
PROC: 5A1D70Z Performance of Urinary Filtration, Intermittent, Less than 6 Hours Per Day (ICD-10-PCS; 2025-04-21)
PROC: 5A1D70Z Performance of Urinary Filtration, Intermittent, Less than 6 Hours Per Day (ICD-10-PCS; 2025-04-23)
PROC: 02HV33Z Insertion of Infusion Device into Superior Vena Cava, Percutaneous Approach (ICD-10-PCS; 2025-04-24)
PROC: B548ZZA Ultrasonography of Superior Vena Cava, Guidance (ICD-10-PCS; 2025-04-24)
PROC: 02PAX3Z Removal of Infusion Device from Heart, External Approach (ICD-10-PCS; 2025-04-24)
PROC: 5A1D70Z Performance of Urinary Filtration, Intermittent, Less than 6 Hours Per Day (ICD-10-PCS; 2025-04-25)
PROC: 5A1D70Z Performance of Urinary Filtration, Intermittent, Less than 6 Hours Per Day (ICD-10-PCS; 2025-04-26)
PROC: 06PY0JZ Removal of Synthetic Substitute from Lower Vein, Open Approach (ICD-10-PCS; principal; 2025-04-27)
PROC: 5A1D70Z Performance of Urinary Filtration, Intermittent, Less than 6 Hours Per Day (ICD-10-PCS; 2025-04-28)
PROC: 5A1D70Z Performance of Urinary Filtration, Intermittent, Less than 6 Hours Per Day (ICD-10-PCS; 2025-04-30)
PROC: 5A1D70Z Performance of Urinary Filtration, Intermittent, Less than 6 Hours Per Day (ICD-10-PCS; 2025-05-01)
PROC: 5A1D70Z Performance of Urinary Filtration, Intermittent, Less than 6 Hours Per Day (ICD-10-PCS; 2025-05-02)
PROC: 0JPTXXZ Removal of Tunneled Vascular Access Device from Trunk Subcutaneous Tissue and Fascia, External Approach (ICD-10-PCS; 2025-05-04)
PROC: 0JH63XZ Insertion of Tunneled Vascular Access Device into Chest Subcutaneous Tissue and Fascia, Percutaneous Approach (ICD-10-PCS; 2025-05-04)
PROC: 02HV33Z Insertion of Infusion Device into Superior Vena Cava, Percutaneous Approach (ICD-10-PCS; 2025-05-04)
PROC: B5181ZA Fluoroscopy of Superior Vena Cava using Low Osmolar Contrast, Guidance (ICD-10-PCS; 2025-05-04)
PROC: 5A1D70Z Performance of Urinary Filtration, Intermittent, Less than 6 Hours Per Day (ICD-10-PCS; 2025-05-04)
PROC: 5A1D70Z Performance of Urinary Filtration, Intermittent, Less than 6 Hours Per Day (ICD-10-PCS; 2025-05-05)
DX: T82.7XXA Infection and inflammatory reaction due to other cardiac and vascular devices, implants and grafts, initial encounter (principal); R65.21 Severe sepsis with septic shock; A41.9 Sepsis, unspecified organism; I13.2 Hypertensive heart and chronic kidney disease with heart failure and with stage 5 chronic kidney disease, or end stage renal disease; E87.20 Acidosis, unspecified; D63.1 Anemia in chronic kidney disease; E83.39 Other disorders of phosphorus metabolism; G82.20 Paraplegia, unspecified; L89.159 Pressure ulcer of sacral region, unspecified stage; N18.6 End stage renal disease; E87.8 Other disorders of electrolyte and fluid balance, not elsewhere classified; E86.1 Hypovolemia; I50.22 Chronic systolic (congestive) heart failure; L02.416 Cutaneous abscess of left lower limb; E66.9 Obesity, unspecified; E78.5 Hyperlipidemia, unspecified; I73.9 Peripheral vascular disease, unspecified; N25.81 Secondary hyperparathyroidism of renal origin; I25.10 Atherosclerotic heart disease of native coronary artery without angina pectoris; I42.0 Dilated cardiomyopathy; Z78.9 Other specified health status; Z99.2 Dependence on renal dialysis; Z68.38 Body mass index [BMI] 38.0-38.9, adult; Z79.899 Other long term (current) drug therapy; Z90.49 Acquired absence of other specified parts of digestive tract; Z90.5 Acquired absence of kidney; Z93.3 Colostomy status; Y83.8 Other surgical procedures as the cause of abnormal reaction of the patient, or of later complication, without mention of misadventure at the time of the procedure; Y92.89 Other specified places as the place of occurrence of the external cause
CPT/HCPCS: 36415; 36556; 36558; 36589; 36600; 71045; 76881; 77001; 80048; 80076; 80202; 82375; 82805; 82962; 83605; 83735; 83880; 83970; 84145; 84443; 84484; 85014; 85018; 85025; 85027; 86705; 86850; 86900; 86920; 87070; 87077; 87186; 87340; 88304; 88311; 90935; 93005; 93306; 93970; 94070; 94640; 94664; 97162; 98960; 99152; 99153; 99291; A4606; C1750; C1752; C1769; J0330; J0665; J0690; J0692; J0885; J1171; J1642; J1644; J1650; J2003; J2004; J2250; J2270; J2371; J2405; J2470; J2704; J2765; J2997; J3010; J3373; J3490; J7040; J7060; J7608; P9041; G0500